=== PATIENT | male | born 1955 | race Two or more races ===

== ENCOUNTER 2018-04-25 12:10 | Emergency (ER) | payer SELFPAY ==
[~2018-04-25] VITALS: Ht 175.3 cm; Wt 77.8 kg
--- NOTE | 2018-04-25 12:50 | NUR ---
[facility] IS AT THE BEDSIDE.
[2018-04-25] MEDS ORDERED: ACETAMINOPHEN ES 500 MG TABLET PO ONE (13:00)
[2018-04-25] MEDS ORDERED: TDAP [DIPH/PERTUSSIS/TET] 0.5 ML VIAL IM ONE ×2 (13:00→13:04)
[2018-04-25] MEDS ORDERED: ACETAMINOPHEN ES 500 MG TABLET ONE (13:04)
--- NOTE | 2018-04-25 13:47 | NUR ---
PT IS GOING TO CT VIA [facility]
--- NOTE | 2018-04-25 14:00 | NUR ---
PT RETURNED FROM CT.
--- NOTE | 2018-04-25 14:30 | NUR ---
PT IS C/O NECK PAIN. M DEGRASSE, AGACNP-BC NOTIFIED AND IS AT THE BEDSIDE SPEAKING TO THE PT.
--- NOTE | 2018-04-25 15:12 | NUR ---
Patient discharged to home in stable condition. Written and verbal after care instructions given. Patient verbalizes understanding of instruction AND RX. PT AMBULATED OUT WITH A STEADY GAIT. VSS
[2018-04-25 15:20] VITALS: BP 128/78
== END 2018-04-25 15:22 | disposition home or self-care (01) ==
LOC: ER 12:12
DX: S39.012A Strain of muscle, fascia and tendon of lower back, initial encounter (principal); S00.11XA Contusion of right eyelid and periocular area, initial encounter; F17.200 Nicotine dependence, unspecified, uncomplicated; Z98.890 Other specified postprocedural states; V43.62XA Car passenger injured in collision with other type car in traffic accident, initial encounter; Y93.89 Activity, other specified; Y92.413 State road as the place of occurrence of the external cause; Y99.8 Other external cause status
CPT/HCPCS: 70486; 90471; 90715; 99284; 99406; A4606; Z7610